=== PATIENT | male | born 1995 | race African-American/Black ===

== ENCOUNTER 2020-07-27 17:39 | Emergency (ER) | payer SELFPAY ==
[~2020-07-27] VITALS: Ht 175.3 cm; Wt 93.0 kg
[2020-07-27 17:40] VITALS: BP 134/90
--- NOTE | 2020-07-27 17:57 | PHYS DOC ---
Past Medical History Past Medical History: Asthma, Other Additional Past Medical Histor: spherocytosis Past Surgical History: No Surgical History Smoking Status: Current Every Day Smoker Additional Information: 1/2ppd Alcohol Use: Sober Social History Narrative: sober x 3 weeks General Adult EDM: Chief Complaint: MEDICATION REFILL HPI: HPI: Patient is a 25 year old male with history of asthma who presents to the ED today requesting a refill of albuterol nebulizer treatments. Patient states he just entered rehab and they will not let him use his sons medicine it must be in his own name Review of Systems: Review of Systems: Constitutional: Denies fever or chills. [] Eyes: Denies change in visual acuity. [] HENT: Denies nasal congestion or sore throat. [] Respiratory: Reports nebulizer medicine refill denies cough or shortness of breath. [] Cardiovascular: Denies chest pain or edema. [] GI: Denies abdominal pain, nausea, vomiting, bloody stools or diarrhea. [] : Denies dysuria. [] Musculoskeletal: Denies back pain or joint pain. [] Integument: Denies rash. [] Neurologic: Denies headache, focal weakness or sensory changes. [] Psychiatric: Denies depression or anxiety. [] Heart Score: C/O Chest Pain: N/A Risk Factors: Risk Factors: DM, Current or recent (<one month) smoker, HTN, HLP, family history of CAD, obesity. Risk Scores: Score 0 - 3: 2.5% MACE over next 6 weeks - Discharge Home Score 4 - 6: 20.3% MACE over next 6 weeks - Admit for Clinical Observation Score 7 - 10: 72.7% MACE over next 6 weeks - Early Invasive Strategies Allergies: Allergies: Allergies Coded Allergies Type Severity Reaction Last Updated Verified Penicillins Allergy Severe SWELLING 07/27/20 Yes Sulfa (Sulfonamide Antibiotics) Allergy Severe SWELLING 07/27/20 Yes amoxicillin Allergy Severe SWELLING 07/27/20 Yes azithromycin Allergy Severe SWELLING 07/27/20 Yes doxycycline Allergy Severe SWELLING 07/27/20 Yes Physical Exam: PE: Constitutional: Well developed, well nourished, no acute distress, non-toxic appearance. [] HENT: Normocephalic, atraumatic, bilateral external ears normal, oropharynx moist, no oral exudates, nose normal. [] Eyes: PERRLA, EOMI, conjunctiva normal, no discharge. [] Neck: Normal range of motion, no tenderness, supple, no stridor. [] Cardiovascular:Heart rate regular rhythm, no murmur [] Lungs & Thorax: Bilateral breath sounds clear to auscultation [] Abdomen: Bowel sounds normal, soft, no tenderness, no masses, no pulsatile masses. [] Skin: Warm, dry, no erythema, no rash. [] Back: No tenderness, no CVA tenderness. [] Extremities: No tenderness, no cyanosis, no clubbing, ROM intact, no edema. [] Neurologic: Alert and oriented X 3, normal motor function, normal sensory function, no focal deficits noted. [] Psychologic: Affect normal, judgement normal, mood normal. [] Current Patient Data: Vital Signs: Vital Signs Date Time Temp Pulse Resp B/P (MAP) Pulse Ox O2 Delivery O2 Flow Rate FiO2 07/27/20 17:40 98.9 101 16 134/90 (105) 99 Room Air 98.9 EKG: EKG: [] Radiology/Procedures: Radiology/Procedures: [] Course & Med Decision Making: Course & Med Decision Making Pertinent Labs and Imaging studies reviewed. (See chart for details) This is a 25-year-old male patient presenting to the ED today requesting a prescription of nebulizer for his albuterol machine. He states he is in rehab and he must have his own medicine. Rx was given. He has no other symptoms Dragon Disclaimer: Dragon Disclaimer: This electronic medical record was generated, in whole or in part, using a voice recognition dictation system. Departure Departure Impression: Primary Impression: Medication refill Disposition: 01 DC HOME SELF CARE/HOMELESS Condition: STABLE Patient Instructions: Asthma, Adult Additional Instructions: Please use the medicine as ordered. Follow-up with your doctor as needed, come back to the ED at any point symptoms worsen Scripts Albuterol Sulfate (ALBUTEROL SULFATE NEB SOLN) 1.25 Mg/3 Ml Vial.neb 1 VIAL NEB Q4HRS, #150 ML 1 Refill Prov: SANDEE ESTRELLA APRN 07/27/20 SANDEE ESTRELLA APRN Jul 27, 2020 17:57
[2020-07-27] MEDS ORDERED: ALBU1.25 NEB ×2 (18:03→18:28)
== END 2020-07-27 18:20 | disposition home or self-care (01) ==
LOC: ER 17:39
DX: J45.909 Unspecified asthma, uncomplicated (principal); F17.200 Nicotine dependence, unspecified, uncomplicated; Z88.0 Allergy status to penicillin; Z88.2 Allergy status to sulfonamides; Z88.1 Allergy status to other antibiotic agents; Z88.8 Allergy status to other drugs, medicaments and biological substances
CPT/HCPCS: 99281

== ENCOUNTER 2021-03-12 01:33 | Emergency (ER) | payer SELFPAY ==
[~2021-03-12] VITALS: Ht 175.3 cm; Wt 85.0 kg
[~2021-03-12 01:33] MED LIST: ALBU1.25 NEB
--- NOTE | 2021-03-12 03:15 | PHYS DOC ---
Past Medical History Past Medical History: Asthma, Other Additional Past Medical Histor: spherocytosis Past Surgical History: No Surgical History Smoking Status: Current Every Day Smoker Alcohol Use: Sober General Adult HPI: HPI: Patient is a 25 year old male who presents with request for refill of albuterol medication. He has chronic asthma. He reports that he wheezes frequently, no acute changes today. He denies chest pain. He denies any severe dyspnea. He denies cough or hemoptysis. He denies fevers or chills. He denies sore throat, rhinorrhea, congestion, headache. He denies abdominal pain or nausea or vomiting. He does smoke tobacco, though he reports that he is trying to stop. He had been using his son's albuterol medication, but he wanted to get his own. He has been out for some time. He does not currently have a primary care physician. He is currently staying at [facility] rehabilitation facility, and he wanted to make sure that he had plenty of his medication upon his return there. No other complaints. Review of Systems: Review of Systems: Constitutional: Denies fever or chills. [] Eyes: Denies change in visual acuity. [] HENT: Denies nasal congestion or sore throat. [] Respiratory: Denies cough, hemoptysis. He denies any severe dyspnea, admits to chronic and unchanged dyspnea with wheezing. Chronic and unchanged wheezing. Cardiovascular: Denies chest pain or edema. [] GI: Denies abdominal pain, nausea, vomiting Musculoskeletal: Denies back pain or joint pain. [] Neurologic: Denies headache, focal weakness or sensory changes. [] Psychiatric: Denies depression or anxiety. [] Heart Score: C/O Chest Pain: No Risk Factors: Risk Factors: DM, Current or recent (<one month) smoker, HTN, HLP, family history of CAD, obesity. Risk Scores: Score 0 - 3: 2.5% MACE over next 6 weeks - Discharge Home Score 4 - 6: 20.3% MACE over next 6 weeks - Admit for Clinical Observation Score 7 - 10: 72.7% MACE over next 6 weeks - Early Invasive Strategies Allergies: Allergies: Allergies Coded Allergies Type Severity Reaction Last Updated Verified Penicillins Allergy Severe SWELLING 07/27/20 Yes Sulfa (Sulfonamide Antibiotics) Allergy Severe SWELLING 07/27/20 Yes amoxicillin Allergy Severe SWELLING 07/27/20 Yes azithromycin Allergy Severe SWELLING 07/27/20 Yes doxycycline Allergy Severe SWELLING 07/27/20 Yes Physical Exam: PE: Constitutional: Well developed, well nourished, no acute distress, non-toxic appearance. [] HENT: Normocephalic, atraumatic Eyes: Sclera clear, conjunctive are clear Neck: Trachea is midline. No JVD. Cardiovascular:Heart rate regular rhythm, well-perfused appearing. No peripheral edema. Lungs & Thorax: No evidence of respiratory distress. No tachypnea. No retractions. No stridor. He does demonstrate bilateral, symmetric, faint inspiratory and expiratory wheezing. No rales or rhonchi. Speaks in full and clear sentences. No cyanosis. Skin: Warm, dry, no erythema Extremities: No limb deformity, no peripheral edema Neurologic: He is awake, alert, oriented x3, speech is clear and fluent, dilatory with a steady gait Psychologic: Affect normal, judgement normal, mood normal. He is very pleasant and cooperative. EKG: EKG: [] Radiology/Procedures: Radiology/Procedures: [] Course & Med Decision Making: Course & Med Decision Making The patient is given an albuterol nebulizer treatment here. He requested that I sign a document stating what prescriptions I have provided him in order to give that to [facility]. I did write a brief note about his treatment here in the ED and what my prescriptions for him in detail. I called his facility personally and spoke with one of the intake coordinators and explained that he will be discharged back there, he is medically stable, and he may take his albuterol as needed there. I did encourage the patient to stop smoking tobacco. He is resting comfortably. He reports feeling much better. No further wheezing. I sent his prescriptions to the pharmacy. I refilled nebulizer treatments as well as MDI. He is provided with outpatient resources to establish care with a primary care physician. No current indication for further invasive exams, imaging. Strict and precautions given. He is comfortable with this plan, verbalizes understanding of instructions Willam Disclaimer: Willam Disclaimer: This electronic medical record was generated, in whole or in part, using a voice recognition dictation system. Departure Departure Impression: Primary Impression: Asthma Qualified Codes: J45.909 - Unspecified asthma, uncomplicated Disposition: 07 LEFT AWOL/ELOPED Condition: GOOD Referrals: NO PCP (PCP) JAYSON GRAY MD,MICHAEL DELGADO,MAINOR PERSAUD,MADDISON NUNEZ,SARA JACKMAN,GAVINO RIVAS MD, MD Patient Instructions: Asthma, Adult Additional Instructions: Use the albuterol as needed for wheezing. Please try to stop smoking, as this can make your asthma worse. Return to the ER for severe chest pain, severe shortness of breath, fever 100.4 or higher, coughing up blood, weakness, if you are acutely injured or sustained any trauma or for any other concerns. Please follow-up with your primary care physician. Scripts Albuterol Sulfate (ALBUTEROL SULFATE NEB SOLN) 2.5 Mg/3 Ml Vial.neb 1 VIAL NEB PRN Q4HRS for asthma, #50 VIAL 2 Refills Prov: JERMAINE MOORE DO 03/12/21 Albuterol Sulfate (VENTOLIN HFA INHALER) 18 Gm Hfa.aer.ad 2 PUFF INH Q4HRS for FOR ASTHMA, #1 INH 3 Refills Prov: JERMAINE MOORE DO 03/12/21 JERMAINE MOORE DO Mar 12, 2021 03:15
[2021-03-12 03:20] VITALS: BP 111/70
[2021-03-12] MEDS ORDERED: ALBU2.5V5 NEB (03:28)
[2021-03-12] MEDS ORDERED: VENTOLIN HFA18 GM INH (03:28)
[2021-03-12] MEDS ORDERED: ALBUTEROL SULFATE 2.5 MG/3 ML NEBU. NEB ONE (04:00)
== END 2021-03-12 03:48 | disposition home or self-care (01) ==
LOC: ER 01:33
DX: J45.909 Unspecified asthma, uncomplicated (principal); F17.200 Nicotine dependence, unspecified, uncomplicated; Z88.0 Allergy status to penicillin; Z88.1 Allergy status to other antibiotic agents; Z88.2 Allergy status to sulfonamides
CPT/HCPCS: 94640; 99283; J7613